=== PATIENT | male | born 1970 | race African-American/Black ===

== ENCOUNTER 2017-07-17 20:26 | Inpatient (IN) | payer MEDICARE, OTHER ==
[~2017-07-17] VITALS: Ht 175.3 cm; Wt 54.6 kg
--- NOTE | 2017-07-17 20:39 | NUR ---
Bib RA102; " I have gastroparesis, my stomach retains fluids and it makes me sob". Patient received awake, alert and oriented. Patient on o2 via nsal canula @2lpm, sating 95%. Skin is warm to touch and non diaphoretic. Afebrile. Vss
--- NOTE | 2017-07-17 20:41 | NUR ---
Dr. Navarrete at [facility]
[2017-07-17 20:55] LABS: BASOPHILS % (AUTO) 0.3 % (0.0-2.0); EOSINOPHILS # (AUTO) 0.1 /CMM (0.0-0.7); EOSINOPHILS % (AUTO) 0.9 % (0.0-6.0); HEMATOCRIT 29 % (39-51); HEMOGLOBIN 9.5 g/dL (13.5-17.5); LYMPHOCYTES # (AUTO) 2.4 /CMM (0.8-4.8); MEAN CORPUSCULAR HEMOGLOBIN 31 PG (26.0-33.0); MEAN CORPUSCULAR HGB CONC 33 g/dl (31.0-36.0); MEAN CORPUSCULAR VOLUME 95 fL (80-96); MONOCYTES # (AUTO) 0.6 /CMM (0.1-1.30); MONOCYTES % (AUTO) 5.4 % (2.0-12.0); NEUTROPHILS # (AUTO) 7.4 /CMM (1.8-8.9); NEUTROPHILS % (AUTO) 70.4 % (43.0-81.0); PLATELET COUNT (AUTO) 239 /CMM (150-450); RDW COEFFICIENT OF VARIATION 14.8 (11.5-15.0); RED BLOOD CELL COUNT(AUTO) 3.08 MIL/uL (4.5-6.0); WHITE BLOOD COUNT (AUTO) 10.5 K/uL (4.3-11.0)
[2017-07-17 21:04] LABS: CALCIUM, SERUM 8.6 mg/dL (8.5-10.1); POTASSIUM 4.8 mmol/L (3.5-5.1)
--- NOTE | 2017-07-17 21:04 | NUR ---
PT REFUSED CXR, RN HECTOR IS AWARE & WILL TELL DR. MIRANDA.
--- NOTE | 2017-07-17 21:04 | NUR ---
pt refused chest xray. MD Navarrete made aware
[2017-07-17 21:09] LABS: ALBUMIN 3.1 g/dL (3.4-5.0); BILIRUBIN,DIRECT 0.1 mg/dL (0.0-0.2); BILIRUBIN,TOTAL 0.5 mg/dL (0.2-1.0); TOTAL PROTEIN, SERUM 6.6 g/dL (6.4-8.2)
--- NOTE | 2017-07-17 21:34 | NUR ---
pt will be admitted to [facility] per md Navarrete
[2017-07-17] MEDS ORDERED: OXYC20TA58 PO (21:50)
[2017-07-17] MEDS ORDERED: FENT1PAT5 TD (21:50)
[2017-07-17] MEDS ORDERED: HYDR2TAB35 PO (21:50)
--- NOTE | 2017-07-17 21:53 | NUR ---
PT TRANSPORTED TO [facility]
[2017-07-17] MEDS ORDERED: ONDANSETRON HCL/PF 4 MG/2 ML VIAL IVP PRN (22:00)
[2017-07-17] MEDS ORDERED: HYDROCODONE/APAP 5/325MG 1 EACH TABLET PO PRN (22:00)
[2017-07-17] MEDS ORDERED: MAG HYDROX/AL HYDROX/SIMETH 30 ML UDC PO PRN (22:00)
[2017-07-17] MEDS ORDERED: MAGNESIUM HYDROXIDE 30 ML UDC PO PRN (22:00)
[2017-07-17] MEDS ORDERED: Z GUARD REMEDY 2 OZ OINT TP PRN (22:00)
[2017-07-17] MEDS ORDERED: ZOLPIDEM TARTRATE 5 MG TABLET PO PRN (22:00)
[2017-07-17] MEDS ORDERED: ACETAMINOPHEN 325 MG TABLET PO PRN (22:00)
--- NOTE | 2017-07-17 22:20 | NUR ---
FLOOR ATTENDANT INITIAL NOTES PT WAS TRANSFERRED FROM ER VIA GURNEY. A/O X4 ABLE TO MAKE NEEDS KNOWN, PARTNER AT BEDSIDE. TELE MONITOR SHOWING SR 90. RIGHT FOOD GANGRENE UNDER DRESSING, PT REFUSED ANY ASSESSMENT, PICTURES OR REMOVAL OF THE DRESSING. PT IS ON 2L NC BREATHING EVENLY AND UNLABORED WITH NO SIGNS OF SOB OR DISTRESS. PT STATES THAT HE WILL NOT REPEAT HIS HISTORY AND ONLY NEED O2 THERAPY FOR HOME. 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 BED IS IN LOW AND LOCKED POSITION, CALL LIGHT IS WITHIN REACH. WILL CONTINUE TO MONITOR PT.
[2017-07-17 22:25] VITALS: BP 93/65
[2017-07-17] MEDS ORDERED: HYDROMORPHONE 1 MG/1 ML DISP.SYRIN ONE (22:48)
[2017-07-17] MEDS: HYDROMORPHONE 1 MG/1 ML DISP.SYRIN IV PRN (22:50)
[2017-07-17 23:51] VITALS: BP 93/65
[2017-07-18] MEDS ORDERED: FENTANYL TD PATCH (50 MCG/HR) 50 MCG/HR PATCH.TD72 TD PRN (01:00)
[2017-07-18] MEDS ORDERED: HYDROMORPHONE HCL 2 MG TABLET PO PRN (01:00)
[2017-07-18] MEDS ORDERED: HYDROMORPHONE 1 MG/1 ML DISP.SYRIN ONE (02:43)
[2017-07-18] MEDS: HYDROMORPHONE 1 MG/1 ML DISP.SYRIN IV PRN ×3 (02:50→12:20)
--- NOTE | 2017-07-18 06:29 | NUR ---
FINE ARTIST CLOSING NOTES PT IS IN BED ALERT AND AWAKE, ABLE TO MAKE NEEDS KNOWN. TELE MONITOR SHOWING SR 87. ON 2L NC WITH NO SIGNS OF SOB OR DISTRESS. PT COMPLAINTS OF RIGHT FOOT PAIN 9/10- DILAUDID IS GIVEN. PT HAD EMESIS x1 LAST NIGHT- 500 ML. ALL NEEDS WERE ANTICIPATED AND MET. WILL ENDORSE TO DAY SHIFT.
--- NOTE | 2017-07-18 07:20 | NUR ---
RN NOTES RECEIVED PATIENT IN BED ALERT AND AWAKE, ABLE TO MAKE NEEDS KNOWN. TELE MONITOR SHOWING SR 84. ON 2L NC WITH NO SIGNS OF SOB OR DISTRESS. PT COMPLAINTS OF RIGHT FOOT PAIN 9- DILAUDID IS GIVEN ORDERED. IV SITE INTACT AND PATENT. KEPT PATIENT SAFE AND COMFORTABLE. BED IN LOW POSITION, HOB ELEVATED, LOCKED, SIDERAILS UP X 2. WILL CONTINUE TO MONITOR ACCORDINGLY.
[2017-07-18] MEDS ORDERED: PANTOPRAZOLE 40 MG TABLET.DR PO SCH (07:30)
[2017-07-18 07:41] LABS: BASOPHILS % (AUTO) 0.5 % (0.0-2.0); EOSINOPHILS % (AUTO) 0.3 % (0.0-6.0); HEMATOCRIT 27 % (39-51); HEMOGLOBIN 9.2 g/dL (13.5-17.5); LYMPHOCYTES # (AUTO) 2.6 /CMM (0.8-4.8); LYMPHOCYTES % (AUTO) 29.2 % (20.0-44.0); MEAN CORPUSCULAR HEMOGLOBIN 32 PG (26.0-33.0); MEAN CORPUSCULAR HGB CONC 34 g/dl (31.0-36.0); MEAN CORPUSCULAR VOLUME 95 fL (80-96); MONOCYTES # (AUTO) 0.5 /CMM (0.1-1.30); MONOCYTES % (AUTO) 5.2 % (2.0-12.0); NEUTROPHILS # (AUTO) 5.7 /CMM (1.8-8.9); NEUTROPHILS % (AUTO) 64.8 % (43.0-81.0); PLATELET COUNT (AUTO) 200 /CMM (150-450); RED BLOOD CELL COUNT(AUTO) 2.88 MIL/uL (4.5-6.0); WHITE BLOOD COUNT (AUTO) 8.8 K/uL (4.3-11.0)
[2017-07-18 08:00] VITALS: BP 91/56
[2017-07-18 08:09] LABS: CALCIUM, SERUM 8.8 mg/dL (8.5-10.1); CREATININE 5.4 mg/dL (0.6-1.3); MAGNESIUM 1.8 mg/dL (1.8-2.4); PHOSPHORUS 3.7 mg/dL (2.5-4.9); POTASSIUM 5.4 mmol/L (3.5-5.1)
--- NOTE | 2017-07-18 12:45 | NUR ---
RN NOTES PULSE OX MEASUREMENT DONE TO PATIENT, O2 SATURATION OF 75-80% ON ROOM AIR. PLACED OXYGEN 2 LPM VIA NASAL CANULA BACK ON.
[2017-07-18 16:00] VITALS: BP 94/59
[2017-07-18] MEDS ORDERED: HYDROMORPHONE 1 MG/1 ML DISP.SYRIN IV PRN (16:00)
[2017-07-18] MEDS ORDERED: HYDROMORPHONE 1 MG/1 ML DISP.SYRIN IV ONE (16:12)
--- NOTE | 2017-07-18 16:17 | NUR ---
RN NOTES PATIENT ASKING FOR PAIN MEDICATION, DILAUDID GIVEN ORDERED. WILL REASSESS PATIENT.
--- NOTE | 2017-07-18 16:40 | NUR ---
RN NOTES PATIENT REFUSED PICTURES TAKEN ON FOOT
--- NOTE | 2017-07-18 16:45 | NUR ---
RN NOTES DISCHARGE PATIENT IN STABLE CONDITION ACCOMPANIED BY DAMION CLARK, AND JESSICA ORANTES. DISCHARGE INSTRUCTIONS/TEACHING/EXITCARE DONE. DISCHARGE PAPERWORK GIVEN TO DAMION CLARK.
[2017-07-19] MEDS ORDERED: HYDROMORPHONE 1 MG/1 ML DISP.SYRIN IV ONE (16:00)
== END 2017-07-18 17:00 | disposition home or self-care (01) | DRG 73 ==
LOC: ER 20:28 → TELE 21:46 → MED 07-18 11:07
PROVIDERS: ADMIT Internal Medicine; ATTEND Internal Medicine
DX: E11.43 Type 2 diabetes mellitus with diabetic autonomic (poly)neuropathy (principal); N18.6 End stage renal disease; I96 Gangrene, not elsewhere classified; E11.22 Type 2 diabetes mellitus with diabetic chronic kidney disease; E44.0 Moderate protein-calorie malnutrition; I12.0 Hypertensive chronic kidney disease with stage 5 chronic kidney disease or end stage renal disease; F11.20 Opioid dependence, uncomplicated; E11.65 Type 2 diabetes mellitus with hyperglycemia; Z79.84 Long term (current) use of oral hypoglycemic drugs; K31.84 Gastroparesis; Z79.4 Long term (current) use of insulin; Z99.81 Dependence on supplemental oxygen; Z99.2 Dependence on renal dialysis; R09.02 Hypoxemia; K21.9 Gastro-esophageal reflux disease without esophagitis; G89.4 Chronic pain syndrome; F41.9 Anxiety disorder, unspecified; D63.8 Anemia in other chronic diseases classified elsewhere
CPT/HCPCS: 36415; 80048-TC; 80076-TC; 83735-TC; 84100-TC; 85025-TC; 87081-TC; A4606; J1170; Z7610

== ENCOUNTER 2017-08-09 13:15 | Outpatient (CLI) | payer MEDICARE, OTHER ==
[~2017-08-09 13:15] MED LIST: FENT1PAT5 TD; HYDR2TAB35 PO; OXYC20TA58 PO
== END 2017-08-09 23:59 | disposition home or self-care (01) ==
LOC: WOU 13:15
PROVIDERS: ATTEND Podiatrist Foot & Ankle Surgery
DX: I70.261 Atherosclerosis of native arteries of extremities with gangrene, right leg (principal); N18.6 End stage renal disease; Z99.2 Dependence on renal dialysis; I70.222 Atherosclerosis of native arteries of extremities with rest pain, left leg; G89.29 Other chronic pain; K31.84 Gastroparesis
CPT/HCPCS: A6402; G0463

== ENCOUNTER 2017-08-11 13:47 | Outpatient (CLI) | payer MEDICARE, OTHER | END 2017-08-11 23:59 | disposition home or self-care (01) | LOC: WOU 13:47 | PROVIDERS: ATTEND Specialist | DX: I70.261 Atherosclerosis of native arteries of extremities with gangrene, right leg (principal); L97.514 Non-pressure chronic ulcer of other part of right foot with necrosis of bone; S91.112A Laceration without foreign body of left great toe without damage to nail, initial encounter; X58.XXXA Exposure to other specified factors, initial encounter; Y92.89 Other specified places as the place of occurrence of the external cause; N18.6 End stage renal disease; Z99.2 Dependence on renal dialysis; G89.29 Other chronic pain; K31.84 Gastroparesis; M86.371 Chronic multifocal osteomyelitis, right ankle and foot | CPT/HCPCS: A6197; A6402; G0463 ==

== ENCOUNTER 2017-08-24 15:13 | Outpatient (CLI) | payer MEDICARE, MEDICAID | END 2017-08-24 23:59 | disposition home or self-care (01) | LOC: RAD 15:13 | PROVIDERS: ATTEND Specialist | DX: J98.4 Other disorders of lung (principal); R91.8 Other nonspecific abnormal finding of lung field; M41.85 Other forms of scoliosis, thoracolumbar region | CPT/HCPCS: 71020-TC ==

== ENCOUNTER 2017-09-08 11:15 | Outpatient (CLI) | payer MEDICARE, MEDICAID ==
[2017-09-09] MEDS ORDERED: CADEXOMER IODINE 40 GM TUBE TP SCH (09:00)
== END 2017-09-08 23:59 | disposition home or self-care (01) ==
LOC: WOU 11:15
PROVIDERS: ATTEND Specialist
DX: I70.263 Atherosclerosis of native arteries of extremities with gangrene, bilateral legs (principal); L97.526 Non-pressure chronic ulcer of other part of left foot with bone involvement without evidence of necrosis; L97.519 Non-pressure chronic ulcer of other part of right foot with unspecified severity; I77.1 Stricture of artery; M86.372 Chronic multifocal osteomyelitis, left ankle and foot; K31.84 Gastroparesis; I70.211 Atherosclerosis of native arteries of extremities with intermittent claudication, right leg; G89.29 Other chronic pain; N18.6 End stage renal disease; Z99.2 Dependence on renal dialysis; S91.112D Laceration without foreign body of left great toe without damage to nail, subsequent encounter; S91.115D Laceration without foreign body of left lesser toe(s) without damage to nail, subsequent encounter; S91.312D Laceration without foreign body, left foot, subsequent encounter; W19.XXXD Unspecified fall, subsequent encounter; J44.9 Chronic obstructive pulmonary disease, unspecified
CPT/HCPCS: A6197 ×2; A6402; G0463

== ENCOUNTER 2017-09-22 07:48 | Inpatient (IN) | payer MEDICARE, MEDICAID ==
[~2017-09-22] VITALS: Ht 175.3 cm; Wt 62.4 kg
[2017-09-22] MEDS ORDERED: DEXTROSE 50%-WATER 50 ML DISP.SYRIN IVP ONE ×3 (08:00→23:00)
[2017-09-22 09:53] LABS: TROPONIN I < 0.017 ng/mL (0.00-0.056)
[2017-09-22 09:57] LABS: INR 1.98 (0.87-1.13); PROTHROMBIN TIME 20.7 SECS (9.5-12.7)
[2017-09-22 09:58] LABS: ALANINE AMINOTRANSFERASE 319 U/L (12-78); ALBUMIN 2.5 g/dL (3.4-5.0); ALKALINE PHOSPHATASE 323 U/L (46-116); ASPARTATE AMINOTRANSFERASE 430 U/L (15-37); B-TYPE NATRIURETIC PEPTIDE 14671 PG/ML (0-125); BILIRUBIN,DIRECT 0.3 mg/dL (0.0-0.2); BILIRUBIN,TOTAL 0.8 mg/dL (0.2-1.0); CALCIUM, SERUM 8.3 mg/dL (8.5-10.1); CARBON DIOXIDE 24 mmol/L (21-32); CHLORIDE 91 mmol/L (98-107); CREATININE 6.5 mg/dL (0.6-1.3); GLUCOSE 117 mg/dL (74-106); SODIUM SERUM 134 mmol/L (136-145); TOTAL PROTEIN, SERUM 8.1 g/dL (6.4-8.2)
[2017-09-22 10:03] LABS: POTASSIUM 6.6 mmol/L (3.5-5.1); UREA NITROGEN, BLOOD 156 mg/dL (7-18)
[2017-09-22] MEDS ORDERED: SODIUM BICARBONATE SYR 50 MEQ/50 ML DISP.SYRIN IV ONE (10:30)
[2017-09-22] MEDS ORDERED: FUROSEMIDE 40 MG/4 ML VIAL IV ONE (10:30)
[2017-09-22] MEDS ORDERED: SODIUM POLYSTYRENE SULFONATE 15 G/60 ML BOTTLE PO ONE ×2 (10:30→23:00)
[2017-09-22] MEDS ORDERED: HYDROMORPHONE 1 MG/1 ML DISP.SYRIN IV ONE (10:30)
[2017-09-22] MEDS ORDERED: IV NS 0.9% 500 ML BAG IV ONE (10:30)
[2017-09-22] MEDS ORDERED: ONDA4TAB8 SL (10:53)
[2017-09-22] MEDS ORDERED: IV NS 0.9% 1,000 ML IV PRN (12:09)
[2017-09-22] MEDS ORDERED: HYDROCODONE/APAP 5/325MG 1 EACH TABLET PO PRN (12:30)
[2017-09-22] MEDS ORDERED: MAG HYDROX/AL HYDROX/SIMETH 30 ML UDC PO PRN (12:30)
[2017-09-22] MEDS ORDERED: ACETAMINOPHEN 325 MG TABLET PO PRN (12:30)
[2017-09-22] MEDS ORDERED: ZOLPIDEM TARTRATE 5 MG TABLET PO PRN (12:30)
[2017-09-22] MEDS ORDERED: Z GUARD REMEDY 2 OZ OINT TP PRN (12:30)
[2017-09-22] MEDS ORDERED: MAGNESIUM HYDROXIDE 30 ML UDC PO PRN (12:30)
[2017-09-22 12:41] VITALS: BP 120/82
[2017-09-22] MEDS: NA PHOS,M-B/NA PHOS,DI-BA 1 EA ENEMA RC PRN (14:48)
[2017-09-22 16:00] VITALS: BP 92/55
[2017-09-22 16:33] LABS: BASOPHILS % (AUTO) 0.2 % (0.0-2.0); HEMATOCRIT 33 % (39-51); HEMOGLOBIN 10.8 g/dL (13.5-17.5); LYMPHOCYTES # (AUTO) 0.5 /CMM (0.8-4.8); MEAN CORPUSCULAR HEMOGLOBIN 30 PG (26.0-33.0); MEAN CORPUSCULAR HGB CONC 33 g/dl (31.0-36.0); MEAN CORPUSCULAR VOLUME 90 fL (80-96); MONOCYTES # (AUTO) 0.2 /CMM (0.1-1.30); MONOCYTES % (AUTO) 3.6 % (2.0-12.0); NEUTROPHILS # (AUTO) 4.4 /CMM (1.8-8.9); NEUTROPHILS % (AUTO) 86.2 % (43.0-81.0); PLATELET COUNT (AUTO) 259 /CMM (150-450); RDW COEFFICIENT OF VARIATION 16.4 (11.5-15.0); RED BLOOD CELL COUNT(AUTO) 3.64 MIL/uL (4.5-6.0); WHITE BLOOD COUNT (AUTO) 5.1 K/uL (4.3-11.0)
[2017-09-22 16:58] LABS: ABG BASE EXCESS -1.6 mmol/L; ABG OXYGEN SATURATION 99.1 % (92.0-98.5); ABG PCO2 24.6 mmHg (35.0-45.0); ABG PH 7.525 (7.350-7.450); AaDO2 19.7 mmHg; COHb 2.3 % (0.5-1.5); MetHb 0.1 % (0.0-1.5); O2Hb 96.7 % (94.0-97.0); SITE, ABG Right Radial; VENT MODE, BG 5 MIN ON NRB MASK 15 L
[2017-09-22] MEDS ORDERED: ALBUMIN 25% 25 GM in PREMIX 1 EA IV ONE (17:00)
[2017-09-22 17:26] VITALS: BP 92/55
[2017-09-22 20:00] VITALS: BP 92/55
[2017-09-22 21:00] LABS: CALCIUM, SERUM 8.1 mg/dL (8.5-10.1); CREATININE 4.7 mg/dL (0.6-1.3); POTASSIUM 5.5 mmol/L (3.5-5.1)
[2017-09-22 21:05] LABS: BASOPHILS % (AUTO) 0.6 % (0.0-2.0); HEMATOCRIT 33 % (39-51); HEMOGLOBIN 10.6 g/dL (13.5-17.5); LYMPHOCYTES # (AUTO) 0.7 /CMM (0.8-4.8); LYMPHOCYTES % (AUTO) 14.7 % (20.0-44.0); MEAN CORPUSCULAR HEMOGLOBIN 29 PG (26.0-33.0); MEAN CORPUSCULAR HGB CONC 32 g/dl (31.0-36.0); MEAN CORPUSCULAR VOLUME 90 fL (80-96); MONOCYTES # (AUTO) 0.9 /CMM (0.1-1.30); MONOCYTES % (AUTO) 18.2 % (2.0-12.0); NEUTROPHILS # (AUTO) 3.3 /CMM (1.8-8.9); NEUTROPHILS % (AUTO) 66.5 % (43.0-81.0); PLATELET COUNT (AUTO) 155 /CMM (150-450); RDW COEFFICIENT OF VARIATION 15.8 (11.5-15.0); RED BLOOD CELL COUNT(AUTO) 3.63 MIL/uL (4.5-6.0)
[2017-09-22] MEDS ORDERED: DEXTROSE 50%-WATER 50 ML DISP.SYRIN ONE ×2 (21:47→22:55)
[2017-09-22] MEDS: BLOOD SUGAR DIAGNOSTIC 1 EACH STRIP IN SCH (22:00)
[2017-09-22] MEDS: HYDROMORPHONE 1 MG/1 ML DISP.SYRIN IV PRN (22:08)
[2017-09-22] MEDS ORDERED: Sodium Chloride 154 MEQ in IV 10% DEXTROSE 1,000 ML IV PRN (23:00)
[2017-09-22 23:30] VITALS: BP 134/98
[2017-09-22 23:40] LABS: CALCIUM, SERUM 7.8 mg/dL (8.5-10.1); POTASSIUM 6.1 mmol/L (3.5-5.1)
[2017-09-22] MEDS ORDERED: SODIUM POLYSTYRENE SULFONATE 15 G/60 ML BOTTLE ONE (23:45)
[2017-09-23] VITALS (45 sets, daily range): BP systolic 63–191; BP diastolic 27–167
[2017-09-23] MEDS ORDERED: INSULIN REGULAR, HUMAN 100 UNIT/ML 10 ML VIAL IV ONE
[2017-09-23] MEDS ORDERED: DEXTROSE 50%-WATER 50 ML DISP.SYRIN ONE ×3 (00:03→21:52)
[2017-09-23] MEDS ORDERED: BLOOD SUGAR DIAGNOSTIC 1 EACH STRIP IN SCH (01:00)
[2017-09-23] MEDS ORDERED: INSULIN REGULAR, HUMAN 100 UNIT/ML 3 ML VIAL ONE (02:08)
[2017-09-23 05:20] LABS: HEMATOCRIT 36 % (39-51); HEMOGLOBIN 11.8 g/dL (13.5-17.5); MEAN CORPUSCULAR HEMOGLOBIN 30 PG (26.0-33.0); MEAN CORPUSCULAR HGB CONC 33 g/dl (31.0-36.0); MEAN CORPUSCULAR VOLUME 90 fL (80-96); PLATELET COUNT (AUTO) 194 /CMM (150-450); RDW COEFFICIENT OF VARIATION 16.3 (11.5-15.0); RED BLOOD CELL COUNT(AUTO) 4.01 MIL/uL (4.5-6.0); WHITE BLOOD COUNT (AUTO) 7.7 K/uL (4.3-11.0)
[2017-09-23 05:45] LABS: ALANINE AMINOTRANSFERASE 295 U/L (12-78); ALBUMIN 2.8 g/dL (3.4-5.0); ALKALINE PHOSPHATASE 301 U/L (46-116); ASPARTATE AMINOTRANSFERASE 237 U/L (15-37); BILIRUBIN,TOTAL 0.9 mg/dL (0.2-1.0); CALCIUM, SERUM 8.4 mg/dL (8.5-10.1); CARBON DIOXIDE 22 mmol/L (21-32); CHLORIDE 93 mmol/L (98-107); CREATININE 5.3 mg/dL (0.6-1.3); GLUCOSE 84 mg/dL (74-106); MAGNESIUM 2.3 mg/dL (1.8-2.4); POTASSIUM 5.9 mmol/L (3.5-5.1); SODIUM SERUM 137 mmol/L (136-145)
[2017-09-23 05:48] LABS: BAND % (MANUAL) 16 % (0.0-5.0); LYMPHOCYTES % (MANUAL) 10 % (16-48); MONOCYTES % (MANUAL) 14 % (0-11.0); NEUTROPHILS % (MANUAL) 60 (42-76)
[2017-09-23 05:55] LABS: UREA NITROGEN, BLOOD 146 mg/dL (7-18)
[2017-09-23] MEDS ORDERED: INSULIN REGULAR, HUMAN 100 UNIT/ML 3 ML VIAL SQ ONE ×2 (06:00→06:15)
[2017-09-23] MEDS ORDERED: DEXTROSE 50%-WATER 50 ML DISP.SYRIN IVP ONE ×6 (06:00→23:00)
[2017-09-23 06:14] LABS: CHOLESTEROL < 50 mg/dL (<200); HDL CHOLESTEROL 36 mg/dL (40-60); LDL 10 mg/dL (0-99); TRIGLYCERIDES < 15 mg/dL (30-150)
[2017-09-23] MEDS: BLOOD SUGAR DIAGNOSTIC 1 EACH STRIP IN SCH ×4 (07:30→22:00)
[2017-09-23] MEDS: NA PHOS,M-B/NA PHOS,DI-BA 1 EA ENEMA RC PRN (07:38)
[2017-09-23] MEDS ORDERED: SODIUM POLYSTYRENE SULFONATE 15 G/60 ML BOTTLE PO ONE (09:00)
[2017-09-23] MEDS ORDERED: BISACODYL SUPP (10 MG) 10 MG/SUPP.RECT SUPP.RECT RC PRN (09:00)
[2017-09-23] MEDS ORDERED: POLYETHYLENE GLYCOL 3350 17 GM POWD.PACK PO PRN (09:00)
[2017-09-23] MEDS: ONDANSETRON HCL/PF 4 MG/2 ML VIAL IVP PRN (09:16)
[2017-09-23] MEDS ORDERED: FENTANYL TD PATCH (50 MCG/HR) 50 MCG/HR PATCH.TD72 TD SCH (12:00)
[2017-09-23] MEDS: HYDROMORPHONE 1 MG/1 ML DISP.SYRIN IV PRN ×2 (12:36→19:27)
[2017-09-23] MEDS: IV D5/ 0.9% NACL 1,000 ML IV PRN (12:38)
[2017-09-23] MEDS ORDERED: ALTEPLASE CATHFLO 2 MG/VIAL IV ONE (16:30)
[2017-09-23] MEDS ORDERED: LACTULOSE 10 G/15 ML UDC (PYXIS) PO PRN (17:00)
[2017-09-23] MEDS: RENAL NOVASOURCE (8OZ) 1 EA BOX PO SCH (17:00)
[2017-09-23] MEDS ORDERED: TPN/PPN PER PHARMACY XX PRN (17:00)
[2017-09-23] MEDS: METOCLOPRAMIDE HCL 10 MG/2 ML VIAL IV SCH (18:00)
[2017-09-23] MEDS ORDERED: ALBUMIN 25% 25 GM in PREMIX 1 EA IV ONE (19:00)
[2017-09-23 19:13] LABS: INR 1.96 (0.87-1.13); PROTHROMBIN TIME 20.5 SECS (9.5-12.7)
[2017-09-24] VITALS (65 sets, daily range): BP systolic 52–211; BP diastolic 33–125
[2017-09-24] MEDS: HYDROMORPHONE 1 MG/1 ML DISP.SYRIN IV PRN ×2 (00:01→04:57)
[2017-09-24] MEDS: METOCLOPRAMIDE HCL 10 MG/2 ML VIAL IV SCH ×4 (01:33→18:28)
[2017-09-24] MEDS: IV D5/ 0.9% NACL 1,000 ML IV PRN (02:57)
[2017-09-24 04:46] LABS: BASOPHILS % (AUTO) 0.1 % (0.0-2.0); EOSINOPHILS % (AUTO) 0.1 % (0.0-6.0); HEMATOCRIT 32 % (39-51); HEMOGLOBIN 10.3 g/dL (13.5-17.5); LYMPHOCYTES # (AUTO) 0.6 /CMM (0.8-4.8); LYMPHOCYTES % (AUTO) 4.7 % (20.0-44.0); MEAN CORPUSCULAR HEMOGLOBIN 29 PG (26.0-33.0); MEAN CORPUSCULAR HGB CONC 33 g/dl (31.0-36.0); MEAN CORPUSCULAR VOLUME 89 fL (80-96); MONOCYTES # (AUTO) 1.3 /CMM (0.1-1.30); MONOCYTES % (AUTO) 10.2 % (2.0-12.0); NEUTROPHILS # (AUTO) 10.8 /CMM (1.8-8.9); NEUTROPHILS % (AUTO) 84.9 % (43.0-81.0); PLATELET COUNT (AUTO) 123 /CMM (150-450); RDW COEFFICIENT OF VARIATION 16.3 (11.5-15.0); RED BLOOD CELL COUNT(AUTO) 3.53 MIL/uL (4.5-6.0); WHITE BLOOD COUNT (AUTO) 12.7 K/uL (4.3-11.0)
[2017-09-24 04:56] LABS: INR 1.89 (0.87-1.13); PROTHROMBIN TIME 19.8 SECS (9.5-12.7)
[2017-09-24 04:59] LABS: ALBUMIN 3.2 g/dL (3.4-5.0); BILIRUBIN,DIRECT 0.5 mg/dL (0.0-0.2); BILIRUBIN,TOTAL 1.1 mg/dL (0.2-1.0); CALCIUM, SERUM 7.3 mg/dL (8.5-10.1); CREATININE 4.9 mg/dL (0.6-1.3); MAGNESIUM 2.2 mg/dL (1.8-2.4); PHOSPHORUS 7.3 mg/dL (2.5-4.9); TOTAL PROTEIN, SERUM 7.4 g/dL (6.4-8.2)
[2017-09-24 05:09] LABS: BAND % (MANUAL) 10 % (0.0-5.0); LYMPHOCYTES % (MANUAL) 4 % (16-48); MONOCYTES % (MANUAL) 8 % (0-11.0); NEUTROPHILS % (MANUAL) 78 (42-76)
[2017-09-24 05:11] LABS: POTASSIUM 6.2 mmol/L (3.5-5.1)
[2017-09-24] MEDS ORDERED: DEXTROSE 50%-WATER 50 ML DISP.SYRIN ONE ×2 (06:05→08:36)
[2017-09-24] MEDS: ONDANSETRON HCL/PF 4 MG/2 ML VIAL IVP PRN (06:14)
[2017-09-24] MEDS ORDERED: DEXTROSE 50%-WATER 50 ML DISP.SYRIN IVP ONE ×2 (06:30→09:00)
[2017-09-24] MEDS ORDERED: INSULIN REGULAR, HUMAN 100 UNIT/ML 10 ML VIAL IV ONE (06:30)
[2017-09-24] MEDS: BLOOD SUGAR DIAGNOSTIC 1 EACH STRIP IN SCH ×4 (07:30→22:09)
[2017-09-24] MEDS: RENAL NOVASOURCE (8OZ) 1 EA BOX PO SCH ×3 (08:03→16:09)
[2017-09-24] MEDS: CADEXOMER IODINE 40 GM TUBE TP SCH (08:03)
[2017-09-24] MEDS: Sodium Chloride 154 MEQ in IV 10% DEXTROSE 1,000 ML IV PRN ×2 (09:19→18:37)
[2017-09-24] MEDS: FAT EMULSION 20% 500 ML in PREMIX 1 EA IV SCH (09:45)
[2017-09-24] MEDS: DEXTROSE 50%-WATER 50 ML DISP.SYRIN IVP PRN ×2 (11:17→17:59)
[2017-09-24] MEDS ORDERED: IV NS 0.9% 250 ML IV ONE (11:23)
[2017-09-24] MEDS ORDERED: IOHEXOL-300 100 ML VIAL IV ONE (11:23)
[2017-09-24] MEDS ORDERED: CT SWABBABLE VALVE TRANS SET 1 EA INFUS.SET MC ONE (11:23)
[2017-09-24] MEDS ORDERED: HYDROMORPHONE INJ 2 MG/ML DISP.SYRIN IV PRN ×2 (12:30→15:30)
[2017-09-24] MEDS ORDERED: ALBUMIN 25% 25 GM in PREMIX 1 EA IV PRN (13:30)
[2017-09-24] MEDS ORDERED: MIDAZOLAM HCL 2 MG/2ML VIAL ONE ×2 (14:22→16:23)
[2017-09-24] MEDS ORDERED: ROCURONIUM BROMIDE 50 MG/5 ML ONE ×2 (14:23→16:26)
[2017-09-24] MEDS ORDERED: SUCCINYLCHOLINE CHLORIDE 20 MG/ML VIAL ONE ×2 (14:23→14:24)
[2017-09-24] MEDS ORDERED: IMIPENEM/CILASTATIN 500 MG in IV NS 0.9% 100 ML IV SCH (14:30)
[2017-09-24] MEDS ORDERED: LEVOFLOXACIN 500 MG /D5W 100ML 500 MG in PREMIX 1 EA IV ONE (15:30)
[2017-09-24] MEDS ORDERED: NOREPINEPHRINE 8 MG in IV D5W 500 ML IV PRN (16:00)
[2017-09-24] MEDS ORDERED: BACITRACIN 50000 UNITS/VIAL ONE (16:21)
[2017-09-24 17:16] LABS: ABG BASE EXCESS -4.8 mmol/L; ABG OXYGEN SATURATION 97.3 % (92.0-98.5); ABG PCO2 38.3 mmHg (35.0-45.0); ABG PH 7.345 (7.350-7.450); ABG PO2 321.2 mmHg (75.0-100.0); AaDO2 353.5 mmHg; COHb 2.1 % (0.5-1.5); MetHb 0.2 % (0.0-1.5); O2Hb 95.1 % (94.0-97.0); PEEP,BG 0 cm H2O; SITE, ABG Right Brachial; VENT MODE, BG AC MODE; VT, ABG 450 mL
[2017-09-24 18:21] LABS: LYMPHOCYTES # (AUTO) 0.4 /CMM (0.8-4.8); LYMPHOCYTES % (AUTO) 22.2 % (20.0-44.0); MEAN CORPUSCULAR HEMOGLOBIN 29 PG (26.0-33.0); MEAN CORPUSCULAR HGB CONC 33 g/dl (31.0-36.0); MEAN CORPUSCULAR VOLUME 88 fL (80-96); NEUTROPHILS # (AUTO) 1.4 /CMM (1.8-8.9); NEUTROPHILS % (AUTO) 75.8 % (43.0-81.0); PLATELET COUNT (AUTO) 68 /CMM (150-450); RDW COEFFICIENT OF VARIATION 16.5 (11.5-15.0); RED BLOOD CELL COUNT(AUTO) 2.03 MIL/uL (4.5-6.0)
[2017-09-24 18:22] LABS: HEMATOCRIT 18 % (39-51); HEMOGLOBIN 5.9 g/dL (13.5-17.5)
[2017-09-24 18:27] LABS: CALCIUM, SERUM 6.4 mg/dL (8.5-10.1); CREATININE 3.5 mg/dL (0.6-1.3); POTASSIUM 4.7 mmol/L (3.5-5.1)
[2017-09-24 18:30] LABS: WHITE BLOOD COUNT (AUTO) 1.9 K/uL (4.3-11.0)
[2017-09-24] MEDS ORDERED: MORPHINE SULFATE INJ 10 MG/ML DISP.SYRIN IV PRN ×2 (18:30)
[2017-09-24 18:53] LABS: INR 1.7 (0.87-1.13); PROTHROMBIN TIME 17.8 SECS (9.5-12.7)
[2017-09-24 19:20] LABS: BAND % (MANUAL) 10 % (0.0-5.0); BASOPHILS % (MANUAL) 0 % (0.0-2.0); EOSINOPHILS % (MANUAL) 0 % (0-4); LYMPHOCYTES % (MANUAL) 21 % (16-48); MONOCYTES % (MANUAL) 3 % (0-11.0); NEUTROPHILS % (MANUAL) 66 (42-76)
[2017-09-24] MEDS ORDERED: FEE PK DOSING 1 MIN EA MC ONE (19:22)
[2017-09-24] MEDS: PHENYLEPHRINE 20 MG in IV D5W 250 ML IV PRN ×4 (19:41→23:15)
[2017-09-24] MEDS ORDERED: VANCOMYCIN 1 GM in IV D5W 250 ML IV ONE (20:00)
[2017-09-24] MEDS ORDERED: MICAFUNGIN SODIUM 100 MG in IV NS 0.9% 100 ML IV SCH (20:00)
[2017-09-24] MEDS ORDERED: VANCOMYCIN 500 MG in IV D5W 100 ML IV PRN (20:00)
[2017-09-24] MEDS: VASOPRESSIN INJ 50 UNIT in IV D5W 497.5 ML IV PRN (20:28)
[2017-09-24] MEDS: NOREPINEPHRINE 16 MG in IV D5W 500 ML IV PRN (20:58)
[2017-09-24] MEDS: MEROPENEM 500 MG in IV NS 0.9% 50 ML IV SCH (21:25)
[2017-09-24] MEDS: IV NS 0.9% 250 ML IV PRN ×2 (22:30→22:31)
[2017-09-25] VITALS (75 sets, daily range): BP systolic 56–113; BP diastolic 17–65
[2017-09-25] MEDS: METOCLOPRAMIDE HCL 10 MG/2 ML VIAL IV SCH ×4 (00:19→14:41)
[2017-09-25] MEDS: PHENYLEPHRINE 20 MG in IV D5W 250 ML IV PRN (00:20)
[2017-09-25] MEDS ORDERED: PHENYLEPHRINE 10 MG/ML VIAL ONE ×2 (00:37→00:45)
[2017-09-25] MEDS: PHENYLEPHRINE 80 MG in IV D5W 250 ML IV PRN ×4 (01:39→14:43)
[2017-09-25] MEDS: NOREPINEPHRINE 16 MG in IV D5W 500 ML IV PRN ×3 (03:27→17:30)
[2017-09-25 04:56] LABS: HEMATOCRIT 31 % (39-51); HEMOGLOBIN 10.5 g/dL (13.5-17.5); MEAN CORPUSCULAR HEMOGLOBIN 30 PG (26.0-33.0); MEAN CORPUSCULAR HGB CONC 34 g/dl (31.0-36.0); MEAN CORPUSCULAR VOLUME 90 fL (80-96); PLATELET COUNT (AUTO) 61 /CMM (150-450); RDW COEFFICIENT OF VARIATION 15.2 (11.5-15.0); RED BLOOD CELL COUNT(AUTO) 3.47 MIL/uL (4.5-6.0); WHITE BLOOD COUNT (AUTO) 6.2 K/uL (4.3-11.0)
[2017-09-25 05:14] LABS: CREATININE 3.6 mg/dL (0.6-1.3); MAGNESIUM 1.7 mg/dL (1.8-2.4); POTASSIUM 5.3 mmol/L (3.5-5.1)
[2017-09-25 05:19] LABS: CALCIUM, SERUM 5.9 mg/dL (8.5-10.1); PHOSPHORUS 8.8 mg/dL (2.5-4.9)
[2017-09-25 05:39] LABS: BAND % (MANUAL) 19 % (0.0-5.0); LYMPHOCYTES % (MANUAL) 7 % (16-48); MONOCYTES % (MANUAL) 8 % (0-11.0); NEUTROPHILS % (MANUAL) 66 (42-76)
[2017-09-25] MEDS: Sodium Chloride 154 MEQ in IV 10% DEXTROSE 1,000 ML IV PRN ×2 (06:34→09:52)
[2017-09-25] MEDS: BLOOD SUGAR DIAGNOSTIC 1 EACH STRIP IN SCH ×3 (07:30→18:00)
[2017-09-25] MEDS: RENAL NOVASOURCE (8OZ) 1 EA BOX PO SCH ×3 (08:27→14:41)
[2017-09-25] MEDS ORDERED: IV NS 0.9% 1,000 ML IV PRN (09:00)
[2017-09-25] MEDS: FAT EMULSION 20% 500 ML in PREMIX 1 EA IV SCH (09:52)
[2017-09-25] MEDS: MEROPENEM 500 MG in IV NS 0.9% 50 ML IV SCH (09:52)
[2017-09-25] MEDS: CADEXOMER IODINE 40 GM TUBE TP SCH (09:54)
[2017-09-25 10:15] LABS: ABG BASE EXCESS -15.1 mmol/L; ABG OXYGEN SATURATION 82.2 % (92.0-98.5); ABG PCO2 50.1 mmHg (35.0-45.0); ABG PH 7.076 (7.350-7.450); ABG PO2 61.9 mmHg (75.0-100.0); COHb 2.3 % (0.5-1.5); MetHb 0.3 % (0.0-1.5); O2Hb 80.1 % (94.0-97.0); SITE, ABG Left Femoral
[2017-09-25] MEDS ORDERED: INSULIN REGULAR, HUMAN 100 UNIT/ML 3 ML VIAL SQ PRN (11:30)
[2017-09-25] MEDS ORDERED: DEXTROSE 50%-WATER 50 ML DISP.SYRIN IV PRN (11:30)
[2017-09-25] MEDS ORDERED: HYDROMORPHONE 1 MG/1 ML DISP.SYRIN IV PRN ×2 (12:30)
[2017-09-25 13:51] LABS: PROTHROMBIN TIME 16.2 SECS (9.5-12.7)
[2017-09-25 13:52] LABS: INR 1.55 (0.87-1.13)
[2017-09-25 14:16] LABS: D-DIMER 4.44 mg/L(FEU (0.17-0.50)
[2017-09-25] MEDS: VASOPRESSIN INJ 50 UNIT in IV D5W 497.5 ML IV PRN (14:43)
== END 2017-09-25 20:30 | disposition expired | DRG 981 ==
LOC: ER 07:50 → TELE-TD 11:15 → TELE1 14:37 → TELE-TD 17:17 → ICU 23:12
PROVIDERS: ADMIT Internal Medicine; ATTEND Internal Medicine
PROC: 5A1D70Z Performance of Urinary Filtration, Intermittent, Less than 6 Hours Per Day (ICD-10-PCS; 2017-09-23)
PROC: 0DB80ZZ Excision of Small Intestine, Open Approach (ICD-10-PCS; 2017-09-24)
PROC: 30233K1 Transfusion of Nonautologous Frozen Plasma into Peripheral Vein, Percutaneous Approach (ICD-10-PCS; 2017-09-24)
PROC: 30233N1 Transfusion of Nonautologous Red Blood Cells into Peripheral Vein, Percutaneous Approach (ICD-10-PCS; 2017-09-24)
PROC: 5A1935Z Respiratory Ventilation, Less than 24 Consecutive Hours (ICD-10-PCS; 2017-09-24)
PROC: 0D1B0Z4 Bypass Ileum to Cutaneous, Open Approach (ICD-10-PCS; principal; 2017-09-24 15:11)
PROC: 30233R1 Transfusion of Nonautologous Platelets into Peripheral Vein, Percutaneous Approach (ICD-10-PCS; 2017-09-25)
PROC: 02HV33Z Insertion of Infusion Device into Superior Vena Cava, Percutaneous Approach (ICD-10-PCS; 2017-09-25)
PROC: B548ZZA Ultrasonography of Superior Vena Cava, Guidance (ICD-10-PCS; 2017-09-25)
DX: J96.01 Acute respiratory failure with hypoxia (principal); A41.9 Sepsis, unspecified organism; D65 Disseminated intravascular coagulation [defibrination syndrome]; K72.00 Acute and subacute hepatic failure without coma; R65.21 Severe sepsis with septic shock; K63.1 Perforation of intestine (nontraumatic); D61.818 Other pancytopenia; K65.9 Peritonitis, unspecified; N18.6 End stage renal disease; J18.9 Pneumonia, unspecified organism; I96 Gangrene, not elsewhere classified; D68.59 Other primary thrombophilia; D62 Acute posthemorrhagic anemia; I50.32 Chronic diastolic (congestive) heart failure; I42.9 Cardiomyopathy, unspecified; M86.8X7 Other osteomyelitis, ankle and foot; R18.8 Other ascites; T82.41XA Breakdown (mechanical) of vascular dialysis catheter, initial encounter; E87.4 Mixed disorder of acid-base balance; E87.5 Hyperkalemia; D63.8 Anemia in other chronic diseases classified elsewhere; I25.10 Atherosclerotic heart disease of native coronary artery without angina pectoris; Z66 Do not resuscitate; Z99.2 Dependence on renal dialysis; K31.84 Gastroparesis; K59.00 Constipation, unspecified; R74.0 Nonspecific elevation of levels of transaminase and lactic acid dehydrogenase [LDH]; I71.2 Thoracic aortic aneurysm, without rupture; E83.9 Disorder of mineral metabolism, unspecified; G89.29 Other chronic pain; K21.9 Gastro-esophageal reflux disease without esophagitis; K66.8 Other specified disorders of peritoneum; K76.0 Fatty (change of) liver, not elsewhere classified; K22.0 Achalasia of cardia; J94.1 Fibrothorax; Y92.009 Unspecified place in unspecified non-institutional (private) residence as the place of occurrence of the external cause; Y73.8 Miscellaneous gastroenterology and urology devices associated with adverse incidents, not elsewhere classified; Y84.9 Medical procedure, unspecified as the cause of abnormal reaction of the patient, or of later complication, without mention of misadventure at the time of the procedure
CPT/HCPCS: 36415; 36569; 36600; 71010-TC; 74000-TC; 74178; 76705-TC; 80048-TC; 80053-TC; 80061-TC; 80076-TC; 80202-TC; 82140-TC; 82803-TC; 82947-TC; 82962-TC; 83735-TC; 83880; 84100-TC; 84478-TC; 84484-TC; 85025-TC; 85396; 85610-TC; 85730-TC; 86850-TC; 86921-TC; 87040-TC; 87081-TC; 88305-TC; 88307-TC; 88311-TC; 90935-TC; 93307-TC; 94002-TC; 94003-TC; 99082-TC; A4216; A4606; A6402; A6403; C1751; J0330; J0743; J1170; J1815; J1956; J2185; J2248; J2250; J2370; J2405; J2765; J2997; J3370; J3490; J7030; J7040; J7042; J7050; J7060; P9016-BL; P9017-BL; P9034-BL; P9047; Q9967; Z7610